=== PATIENT | male | born 1955 | race African-American/Black ===

== ENCOUNTER 2017-11-24 09:18 | Emergency (ER) | payer MEDICARE ==
[~2017-11-24] VITALS: Ht 170.2 cm; Wt 78.0 kg
[2017-11-24] MEDS ORDERED: NORCO (09:36)
[2017-11-24] MEDS ORDERED: IBUPROFEN 600MG TABLET PO ONE (10:15)
[2017-11-24] MEDS ORDERED: HYDROCODONE/ACETAMINOPHEN 5/325MG TABLET PO ONE (11:15)
[2017-11-24 11:30] VITALS: BP 134/89
== END 2017-11-24 12:02 | disposition home or self-care (01) ==
LOC: ER 09:55
DX: S62.625A Displaced fracture of middle phalanx of left ring finger, initial encounter for closed fracture (principal); I10 Essential (primary) hypertension; Y04.0XXA Assault by unarmed brawl or fight, initial encounter; Y93.89 Activity, other specified; Y92.89 Other specified places as the place of occurrence of the external cause; Y99.8 Other external cause status
CPT/HCPCS: 73140; 99284